=== PATIENT | male | born 1975 | race Caucasian/White ===

== ENCOUNTER → 2023-10-07 | Outpatient (CLI) | payer OTHER | LOC: M RAD 12:26 | PROVIDERS: ATTEND Nurse Practitioner Family | DX: M50.30 Other cervical disc degeneration, unspecified cervical region (principal); M48.02 Spinal stenosis, cervical region; M99.71 Connective tissue and disc stenosis of intervertebral foramina of cervical region; M54.12 Radiculopathy, cervical region ==

== ENCOUNTER 2024-01-24 09:31 | Day surgery (SDC) | payer OTHER ==
[~2024-01-24] VITALS: Ht 177.8 cm; Wt 102.0 kg
[~2024-01-24 09:31] MED LIST: AMIT25TA19 PO; LISI20TA37 PO; PANT40TA29 PO
[2024-01-24] MEDS: NS 1,000 ML IV ONE (10:13)
[2024-01-24] MEDS ORDERED: propofoL 200 MG/20 ML VIAL As Ordered ONE (11:45)
[2024-01-24] MEDS ORDERED: LIDOCAINE 2% 100MG/5ML SDV (FOR ANES.) As Ordered ONE (11:45)
[2024-01-24 11:59] VITALS: TEMP 98
[2024-01-24 12:15] VITALS: BP 138/82; O2SAT 98
== END 2024-01-24 12:33 | disposition home or self-care (01) ==
LOC: M OPP 09:31
PROVIDERS: ATTEND Surgery
DX: Z12.11 Encounter for screening for malignant neoplasm of colon (principal); Z12.12 Encounter for screening for malignant neoplasm of rectum; I10 Essential (primary) hypertension; G47.30 Sleep apnea, unspecified; Z79.899 Other long term (current) drug therapy